=== PATIENT | male | born 1970 | race Caucasian/White ===

== ENCOUNTER 2018-11-06 10:23 | Inpatient (IN) ==
[2018-11-06] MEDS ORDERED: BISACODYL 5 MG TABLET PO PRN (10:34)
[2018-11-06] MEDS ORDERED: DOCUSATE SODIUM 100 MG CAPSULE PO PRN (10:34)
[2018-11-06] MEDS ORDERED: guaiFENesin/DM ER 600-30 MG TABLET PO PRN (10:34)
[2018-11-06] MEDS ORDERED: ACETAMINOPHEN 325 MG TABLET PO PRN (10:34)
[2018-11-06] MEDS ORDERED: MORPHINE 4 MG/1 ML VIAL IV PRN (10:34)
[2018-11-06] MEDS ORDERED: ZALEPLON 5 MG CAPSULE PO PRN (10:34)
[2018-11-06] MEDS ORDERED: POTASSIUM CHLORIDE 20 MEQ TABLET PO PRN (10:34)
[2018-11-06] MEDS ORDERED: ONDANSETRON 4 MG/2 ML VIAL IV PRN (10:34)
[2018-11-06] MEDS ORDERED: diphenhydrAMINE CAP 25 MG CAPSULE PO PRN (10:34)
[2018-11-06] MEDS ORDERED: MAGNESIUM SULF RIDER 2 GM in PREMIX 1 EACH IV PRN (10:34)
[2018-11-06] MEDS ORDERED: MAGNESIUM SULF RIDER 4 GM in PREMIX 1 EACH IV PRN (10:34)
[2018-11-06] MEDS ORDERED: NITROGLYCERIN SL 0.4 MG TABLET SL PRN (10:38)
[2018-11-06 11:57] LABS: Basophils # 0.1 10*3/uL (0.0-0.2); Basophils % 1.1 % (0.0-0.8); Eosinophils # 0.1 10*3/uL (0.0-0.87); Eosinophils % 0.9 % (0.00-10.9); Hematocrit 53.2 VOL% (42.0-52.0); Hemoglobin 15.7 GM/DL (14.0-18.0); Immature Granulocytes % 0.3 %; Immature Granulocytes Absolute 0.03 #; Lymphocytes # 1.3 10*3/uL (1.4-4.0); Lymphocytes % 14.1 % (21.2-54.2); Mean Corpuscular HGB Conc 29.5 GM/DL (32-36); Mean Corpuscular Hemoglobin 25 PG (27-34); Mean Corpuscular Volume 83.6 FL (87-102); Mean Platelet Volume 11.3 FL (9.6-12.0); Monocytes # 0.9 10*3/uL (0.11-0.8); Monocytes % 9.5 % (1.7-12.7); Neutrophils % 74.1 % (38.7-73.9); Platelet Count 237 T/CUMM (130-400); Red Blood Count 6.36 MC/CUMM (3.8-5.5); Red Cell Distribution Width 18.6 % (9.3-17.3); White Blood Count 9.5 T/CUMM (4-12)
[2018-11-06] MEDS: ASPIRIN EC 81 MG TABLET PO SCH (12:09)
[2018-11-06 12:12] LABS: Albumin 3.8 G/DL (3.4-5.0); Bilirubin,Total 1.6 MG/DL (0.2-1.0); Calcium 8.9 MG/DL (8.5-10.1); Osmolality,Calculated 275.8 MOS/KG (273-304); Potassium 3.8 MMOL/L (3.5-5.1); Thyroid Stimulating Hormone 0.802 uIU/ml (0.358-3.74); Total Protein 8.4 G/DL (6.4-8.3)
[2018-11-06] MEDS: FUROSEMIDE 40 MG/4 ML VIAL IV SCH ×2 (12:46→15:11)
[2018-11-06] MEDS: CARVEDILOL 3.125 MG TABLET PO SCH ×2 (13:53→21:17)
[2018-11-06] MEDS: LOSARTAN 25 MG TABLET PO SCH (13:53)
[2018-11-06] MEDS: SPIRONOLACTONE 25 MG TABLET PO SCH (13:53)
[2018-11-06 14:32] LABS: Troponin I 0.036 NG/ML (0.00-0.045)
[2018-11-06] MEDS ORDERED: FUROSEMIDE 40 MG/4 ML VIAL IV ONE ×2 (14:36→20:00)
[2018-11-06 14:44] LABS: Apearance,Urine CLEAR (Clear); Bilirubin,Urine Negative (Negative); Blood, Urine Negative (Negative); Glucose,Urine (UA) Negative (Negative); Ketones,Urine Negative (Negative); Nitrite,Urine Negative (Negative); Protein,Urine Negative; RBC,Urine <1 /HPF (0-4); Urine Color Straw (Yellow); Urine Specific Gravity 1.005 (1.001-1.035); Urine Urobilinogen < 2.0 EU/DL (0.2-1.0); WBC,Urine <1 /HPF (0-6)
[2018-11-06 17:15] LABS: Troponin I 0.041 NG/ML (0.00-0.045)
[2018-11-06] MEDS: ENOXAPARIN 40 MG/0.4 ML SYRINGE SUBCUT SCH (21:16)
[2018-11-07 05:09] LABS: Basophils # 0.1 10*3/uL (0.0-0.2); Basophils % 0.8 % (0.0-0.8); Eosinophils # 0.1 10*3/uL (0.0-0.87); Eosinophils % 1.3 % (0.00-10.9); Hematocrit 48.7 VOL% (42.0-52.0); Hemoglobin 14.9 GM/DL (14.0-18.0); Immature Granulocytes % 0.5 %; Immature Granulocytes Absolute 0.05 #; Lymphocytes % 8.6 % (21.2-54.2); Mean Corpuscular HGB Conc 30.6 GM/DL (32-36); Mean Corpuscular Hemoglobin 25 PG (27-34); Mean Corpuscular Volume 81.4 FL (87-102); Mean Platelet Volume 10.5 FL (9.6-12.0); Monocytes # 1.2 10*3/uL (0.11-0.8); Monocytes % 11.1 % (1.7-12.7); Neutrophils # 8.6 10*3/uL (1.4-7.4); Neutrophils % 77.7 % (38.7-73.9); Platelet Count 239 T/CUMM (130-400); Red Blood Count 5.98 MC/CUMM (3.8-5.5); Red Cell Distribution Width 18.4 % (9.3-17.3)
[2018-11-07 05:40] LABS: Calcium 8.9 MG/DL (8.5-10.1); Potassium 3.8 MMOL/L (3.5-5.1)
[2018-11-07 05:48] LABS: Calcium 8.9 MG/DL (8.5-10.1); Potassium 3.8 MMOL/L (3.5-5.1); Risk Ratio 3.61; VLDL CHOLESTEROL 13.6 MG/DL
[2018-11-07] MEDS ORDERED: POTASSIUM CHLORIDE RIDER 10 MEQ in PREMIX 1 EACH IV PRN (07:50)
[2018-11-07] MEDS ORDERED: DIAZEPAM 5 MG TABLET PO ONE ×2 (07:50→08:49)
[2018-11-07] MEDS ORDERED: diphenhydrAMINE CAP 25 MG CAPSULE PO ONE (07:50)
[2018-11-07] MEDS: CARVEDILOL 3.125 MG TABLET PO SCH (08:36)
[2018-11-07] MEDS: ASPIRIN EC 81 MG TABLET PO SCH (08:36)
[2018-11-07] MEDS: LOSARTAN 25 MG TABLET PO SCH (08:36)
[2018-11-07] MEDS: PANTOPRAZOLE 40 MG TABLET PO SCH (08:36)
[2018-11-07] MEDS: SPIRONOLACTONE 25 MG TABLET PO SCH (08:37)
[2018-11-07] MEDS: FUROSEMIDE 40 MG/4 ML VIAL IV SCH ×2 (09:17→16:13)
[2018-11-07] MEDS ORDERED: HEPARIN/NACL 0.9% 2 UNITS/ML 1,000 ML IV ONE ×2 (10:14→12:15)
[2018-11-07] MEDS ORDERED: LIDOCAINE 1% 20 ML VIAL ONE ×2 (10:14→12:15)
[2018-11-07] MEDS ORDERED: VERAPAMIL 5 MG/2 ML VIAL ONE (10:14)
[2018-11-07] MEDS ORDERED: NITROGLYCERIN DRIP 50 MG/250 ML BOTTLE IV ONE (10:14)
[2018-11-07] MEDS ORDERED: MIDAZOLAM 2 MG/2 ML VIAL ONE (12:15)
[2018-11-07] MEDS ORDERED: HYDROmorphone 2 MG/1 ML VIAL ONE (12:15)
[2018-11-07] MEDS ORDERED: ENOXAPARIN 30 MG/0.3 ML SYRINGE ONE (12:32)
[2018-11-07] MEDS ORDERED: LOSARTAN 50 MG TABLET PO SCH (12:49)
[2018-11-07] MEDS: ASCORBIC ACID 500 MG TABLET PO SCH ×2 (14:45→21:05)
[2018-11-07] MEDS: CARVEDILOL 6.25 MG TABLET PO SCH ×2 (14:45→16:13)
[2018-11-07] MEDS ORDERED: ATORVASTATIN 40 MG TABLET PO SCH (21:00)
[2018-11-07] MEDS: ENOXAPARIN 40 MG/0.4 ML SYRINGE SUBCUT SCH (21:06)
[2018-11-08 04:35] LABS: Basophils # 0.1 10*3/uL (0.0-0.2); Basophils % 1.2 % (0.0-0.8); Eosinophils # 0.1 10*3/uL (0.0-0.87); Eosinophils % 1.9 % (0.00-10.9); Hemoglobin 14.3 GM/DL (14.0-18.0); Immature Granulocytes % 0.5 %; Immature Granulocytes Absolute 0.04 #; Lymphocytes # 1.1 10*3/uL (1.4-4.0); Lymphocytes % 15.4 % (21.2-54.2); Mean Corpuscular HGB Conc 29.8 GM/DL (32-36); Mean Corpuscular Hemoglobin 24 PG (27-34); Mean Corpuscular Volume 81.6 FL (87-102); Mean Platelet Volume 10.9 FL (9.6-12.0); Monocytes % 13.8 % (1.7-12.7); Neutrophils # 4.9 10*3/uL (1.4-7.4); Neutrophils % 67.2 % (38.7-73.9); Platelet Count 193 T/CUMM (130-400); Red Blood Count 5.88 MC/CUMM (3.8-5.5); Red Cell Distribution Width 17.8 % (9.3-17.3); White Blood Count 7.3 T/CUMM (4-12)
[2018-11-08 05:01] LABS: Calcium 8.6 MG/DL (8.5-10.1); Osmolality,Calculated 277.8 MOS/KG (273-304); Potassium 3.5 MMOL/L (3.5-5.1)
[2018-11-08] MEDS ORDERED: ISOSORBIDE MONONITRATE 30 MG TABLET PO SCH (09:00)
[2018-11-08] MEDS: SPIRONOLACTONE 25 MG TABLET PO SCH (10:03)
[2018-11-08] MEDS: ASCORBIC ACID 500 MG TABLET PO SCH (10:04)
[2018-11-08] MEDS: PANTOPRAZOLE 40 MG TABLET PO SCH (10:04)
[2018-11-08] MEDS: ASPIRIN EC 81 MG TABLET PO SCH (10:04)
[2018-11-08] MEDS: CARVEDILOL 6.25 MG TABLET PO SCH (10:04)
[2018-11-08] MEDS: FUROSEMIDE 40 MG/4 ML VIAL IV SCH (10:11)
[2018-11-08 13:43] VITALS: BP 112/64
== END 2018-11-08 16:45 | disposition home or self-care (01) | DRG 286 ==
LOC: N.TELES 10:50
PROVIDERS: ADMIT Internal Medicine Cardiovascular Disease; ATTEND Internal Medicine Cardiovascular Disease
PROC: CLCCHCL (ICD-10-PCS; 2018-11-07 13:45)